=== PATIENT | male | born 1945 ===

== ENCOUNTER 2020-07-06 06:45 | Day surgery (SDC) | payer OTHER | END 2020-07-06 10:35 | disposition home or self-care (01) | LOC: AMB-ENDOS 06:45 | PROVIDERS: ATTEND Colon & Rectal Surgery | DX: D12.2 Benign neoplasm of ascending colon (principal); D12.3 Benign neoplasm of transverse colon; K64.2 Third degree hemorrhoids; Z20.828 Contact with and (suspected) exposure to other viral communicable diseases ==

== ENCOUNTER 2021-08-02 06:45 | Day surgery (SDC) | payer OTHER | END 2021-08-02 12:00 | disposition home or self-care (01) | LOC: AMB-ENDOS 06:45 → CIR.AMB 14:30 | PROVIDERS: ATTEND Colon & Rectal Surgery | DX: D12.3 Benign neoplasm of transverse colon (principal); K64.1 Second degree hemorrhoids ==